=== PATIENT | female | born 1985 | race Caucasian/White ===

== ENCOUNTER 2017-03-15 15:16 | Emergency (ER) | payer MEDICAID ==
--- NOTE | 2017-03-15 16:09 | ER Document Report ---
ED Skin Rash/Insect Bite/Abscs - General Chief Complaint: bugs underskin Stated Complaint: SKIN PROBLEM Time seen by provider: 16:04 Mode of Arrival: Ambulatory TRAVEL OUTSIDE OF THE [place] IN LAST 30 DAYS: No - HPI Patient complains to provider of: Skin rash/lesion Onset: Just prior to arrival Onset/Duration: Sudden Quality of pain: Sharp Severity: Severe Pain Level: 5 Skin Character: Other - Patient has little pick garrison on both arms and face Quality of rash: Itchy, Painful Identify cause: No - patient states his little invisible bugs to go in and out of her skin Exacerbated by: Denies Relieved by: Denies Similar symptoms previously: Yes Recently seen / treated by doctor: Yes - Related Data Allergies/Adverse Reactions: hydrocodone Allergy (Intermediate, Verified 03/15/17 16:48) Hives Past Medical History - General Information source: Patient Last Menstrual Period: January unsure of the date - Social History Smoking Status: Current Every Day Smoker Cigarette use (# per day): Yes - pack per day Chew tobacco use (# tins/day): No Smoking Education Provided: Yes - less than 2 minutes Frequency of alcohol use: Rare Drug Abuse: Marijuana, Prescription drugs Occupation: none Lives with: Family Family History: Arthritis, CAD, CVA, DM, Hyperlipidemia, Hypertension, Malignancy Patient has suicidal ideation: No Patient has homicidal ideation: No - Past Medical History Cardiac Medical History: Reports: None Pulmonary Medical History: Reports: None EENT Medical History: Reports: None Neurological Medical History: Reports: None Endocrine Medical History: Reports: None Renal/ Medical History: Reports: None Malignancy Medical History: Reports: None GI Medical History: Reports: None Musculoskeltal Medical History: Reports Hx Arthritis, Reports Hx Musculoskeletal Deformity - Carpal tunnel. Back pain Skin Medical History: Reports None Psychiatric Medical History: Reports: Hx Attention Deficit Hyperactivity Disorder, Hx Depression Traumatic Medical History: Reports: None Infectious Medical History: Reports: None Past Surgical History: Reports: Hx Cholecystectomy - Immunizations Hx Diphtheria, Pertussis, Tetanus Vaccination: No Review of Systems - Review of Systems Constitutional: No symptoms reported EENT: No symptoms reported, Other - Little sores to mouth face Cardiovascular: No symptoms reported Respiratory: No symptoms reported Gastrointestinal: No symptoms reported Genitourinary: No symptoms reported Female Genitourinary: No symptoms reported Musculoskeletal: No symptoms reported Skin: Other - Little sores to arms face neck Hematologic/Lymphatic: No symptoms reported Neurological/Psychological: No symptoms reported -: Yes All other systems reviewed and negative Physical Exam - Vital signs Vitals: Temp Pulse BP Pulse Ox 97.9 F 96 116/63 100 03/15/17 15:43 03/15/17 15:43 03/15/17 15:43 03/15/17 15:43 Interpretation: Normal - General General appearance: Appears well, Alert - HEENT Head: Normocephalic, Atraumatic Eyes: Normal Pupils: PERRL - Respiratory Respiratory status: No respiratory distress Chest status: Nontender Breath sounds: Normal Chest palpation: Normal - Cardiovascular Rhythm: Regular Heart sounds: Normal auscultation Murmur: No - Abdominal Inspection: Normal Distension: No distension Bowel sounds: Normal Tenderness: Nontender Organomegaly: No organomegaly - Back Back: Normal, Nontender - Extremities General upper extremity: Normal inspection, Nontender, Normal color, Normal ROM , Normal temperature General lower extremity: Normal inspection, Nontender, Normal color, Normal ROM , Normal temperature, Normal weight bearing. No: Ajith's sign - Neurological Neuro grossly intact: Yes Cognition: Normal Orientation: AAOx4 Bentley Coma Scale Eye Opening: Spontaneous Bent[place] Coma Scale Verbal: Oriented [place] Coma Scale Motor: Obeys Commands [place] Coma Scale Total: 15 Speech: Normal Motor strength normal: LUE, RUE, LLE, RLE Sensory: Normal - Psychological Associated symptoms: Normal affect, Normal mood - Skin Skin Temperature: Warm Skin Moisture: Dry Skin Color: Normal Skin irregularity: other - Little picked sores patient states she has bugs flying in and out of the sores Location of irregularity: Face, Extremities - Bilateral arms, Other Course - Vital Signs Vital signs: Temp Pulse Resp BP Pulse Ox 98.1 F 64 16 117/57 L 99 03/15/17 17:44 03/15/17 17:44 03/15/17 17:44 03/15/17 17:44 03/15/17 17:44 - Laboratory Laboratory results interpreted by me: 03/15/17 16:04 Ur Leukocyte Esterase TRACE H Discharge - Discharge Clinical Impression: open sores to face and arms Condition: Stable Disposition: ELOPED Additional Instructions: Patient eloped before I was able to finish her workup. She told some of the staff that she was going to get a snack and then she would never show back up in the room she is not in the front lobby. Her drug screen is positive for opiates and cocaine marijuana and according to the lab the amphetamines at something that was interfering with the results and she stated it looked positive. I'm unable to educate patient due to her elopement. Referrals: TOMY BURKS MD [Primary Care Provider] - Follow up as needed
[2017-03-15 17:12] LABS: AMORPHOUS SEDIMENT,URINE TRACE /HPF; APPEARANCE,URINE CLOUDY; BILIRUBIN,URINE NEGATIVE (NEGATIVE); GLUCOSE, URINE NEGATIVE (NEGATIVE); KETONES,URINE NEGATIVE (NEGATIVE); LEUKOCYTE ESTERASE,URINE TRACE (NEGATIVE); NITRITE,URINE NEGATIVE (NEGATIVE); PROTEIN,URINE NEGATIVE (NEGATIVE); URINE SPECIFIC GRAVITY 1.021; UROBILINOGEN,URINE NEGATIVE mg/dL (<2.0)
[2017-03-15 17:16] LABS: URINE BARBITURATES SCREEN NEGATIVE; URINE METHADONE SCREEN NEGATIVE; URINE OPIATES LOW UNCONFIRMED POSITIVE; URINE PHENCYCLIDINE SCREEN NEGATIVE
[2017-03-15 17:45] VITALS: BP 117/57
== END 2017-03-15 19:20 | disposition home or self-care (01) ==
LOC: ER 15:16
DX: R21 Rash and other nonspecific skin eruption (principal); F17.210 Nicotine dependence, cigarettes, uncomplicated; Z88.6 Allergy status to analgesic agent
CPT/HCPCS: 80307; 81001; 81025; 99281